=== PATIENT | female | born 1945 | race Caucasian/White ===

== ENCOUNTER 2017-07-26 10:28 | Outpatient (CLI) | payer MEDICARE, OTHER ==
--- NOTE | 2017-07-26 13:57 | ULT ---
RIGHT UPPER QUADRANT ULTRASOUND: 07/26/2017 HISTORY: Elevated liver function tests. COMPARISON: None. TECHNIQUE: Multiplanar whitfield-scale sonographic imaging of the right upper quadrant obtained. FINDINGS: The imaged pancreas is grossly unremarkable. Portions of the pancreas are obscured by bowel gas. No focal liver lesion or intrahepatic biliary dilatation is seen. The gallbladder is surgically abse nt. The common bile duct measures 6 mm, within normal limits. The purchasing expeditor reports a negative Mu rphy sign. The right kidney measures 9.3 cm in craniocaudal dimension and demonstrates no stone, hydronephrosis, or mass. IMPRESSION: Status post cholecystectomy. No biliary dilatation seen. POS: [facility]
== END 2017-07-26 10:29 | disposition home or self-care (01) ==
LOC: ULT 10:28
PROVIDERS: ATTEND Family Medicine
DX: R79.89 Other specified abnormal findings of blood chemistry (principal); Z90.49 Acquired absence of other specified parts of digestive tract
CPT/HCPCS: 76705

== ENCOUNTER 2017-08-04 12:10 | Outpatient (CLI) | payer MEDICARE | END 2017-08-04 12:11 | disposition home or self-care (01) | LOC: BICMAMMO 12:10 | PROVIDERS: ATTEND Family Medicine | DX: Z12.31 Encounter for screening mammogram for malignant neoplasm of breast (principal) | CPT/HCPCS: 77063; 77067 ==

== ENCOUNTER 2017-09-20 08:48 | Outpatient (CLI) | payer MEDICARE, OTHER ==
--- NOTE | 2017-09-20 11:20 | RAD ---
BARIUM SWALLOW ESOPHAGRAM: HISTORY: Esophageal reflux. Dysphagia. Previous gastroesophageal hernia repair. COMPARISON: None. FINDINGS: The initial oil extractor radiograph demonstrates atherosclerosis of the aorta. Normal cardiac silhouette. Pulmonary vessels and hilum are normal. Costophrenic angles are clear. No consolidation or masses. No pneumothorax or osseous abnormalities. Bilateral nipple shadows are noted. The cervical and thoracic esophagus have an overall normal course and caliber. No mucosal abnormalit y. No delay in passage of contrast. No reflux during intermittent fluoroscopy. The patient was administered a standard 13 mm barium tablet which passed without difficulty. Postprocedure upright and supine abdomen radiographs demonstrate a nonspecific bowel gas pattern. IMPRESSION: No evidence of reflux during intermittent fluoroscopy. No evidence of significant stenosis. POS: [facility]
== END 2017-09-20 08:49 | disposition home or self-care (01) ==
LOC: RAD 08:48
PROVIDERS: ATTEND Internal Medicine Gastroenterology
DX: K21.9 Gastro-esophageal reflux disease without esophagitis (principal); R13.10 Dysphagia, unspecified; Z98.890 Other specified postprocedural states
CPT/HCPCS: 74220

== ENCOUNTER 2017-09-27 12:21 | Emergency (ER) | payer MEDICARE ==
[~2017-09-27 12:21] MED LIST: ISOVUE-370 76%-LOCM 1 ML ONE
[2017-09-27 12:57] LABS: #Basophils 0.1 thou/uL (0.0-0.2); #Eosinphils 0.3 thou/uL (0.0-0.7); #Lymphocytes 1.7 thou/uL (1.20-3.40); #Monocytes 0.4 thou/uL (0.11-0.59); #Neutrophils 3.7 thou/uL (1.40-6.50); %Basophils 1.1 % (0.0-1.0); %Eosinophils 4.7 % (0.0-10.0); %Monocytes 6.4 % (0.0-10.0); %Neutrophils 59.7 % (42.0-75.0); Hemoglobin 13.9 g/dL (12.0-16.0); Mean Corpuscular HGB CONC 33.9 g/dL (32.0-36.0); Mean Corpuscular Hemoglobin 33.2 pg (27.0-31.0); Mean Corpuscular Volume 97.8 fl (81.0-99.0); Mean Platelet Volume 6.9 fL (7.4-10.4); Platelet Count 291 thou/uL (130-400); RBC Distribution Width 12.1 % (11.5-14.5); White Blood Cell (WBC) Count 6.1 thou/uL (4.8-10.8)
[2017-09-27 13:20] LABS: ALT (SGPT) 16 U/L (8-55); AST (SGOT) 23 U/L (5-34); Albumin 4.2 g/dL (3.4-4.8); Alkaline Phosphatase 59 U/L (40-150); Anion Gap 9 mmol/L (10-20); BUN (Urea Nitrogen) 12 mg/dL (9.8-20.1); Bilirubin, Total 0.6 mg/dL (0.2-1.2); Calc. Creatinine Clearance 0 mL/min (70-130); Calcium 9.4 mg/dL (7.8-10.44); Carbon Dioxide 28 mmol/L (23-31); Chloride 108 mmol/L (98-107); Estimated GFR-MDRD 56; Globulin 3.9 g/dL (2.4-3.5); Glucose 92 mg/dL (83-110); Lipase 30 U/L (8-78); Potassium 3.7 mmol/L (3.5-5.1); Protein, Total 8.1 g/dL (6.0-8.3); Sodium 141 mmol/L (136-145)
[2017-09-27 15:19] LABS: Bilirubin Negative (Negative); Blood, Urine Negative (Negative); Clarity CLEAR (Clear); Glucose, Urine (Dipstick) Negative (Negative); Leukocyte Negative (Negative); Nitrite Negative (Negative); Protein, Urine (Dipstick) Negative (Neg-Trace); Specific Gravity, Urine 1.018 (1.002-1.036); Urobilinogen 0.2 mg/dL (0.2-1.0); pH, Urine 7.5 (5.0-9.0)
--- NOTE | 2017-09-27 16:20 | CT ---
ABDOMEN CT WITH CONTRAST PELVIC CT WITH CONTRAST: HISTORY: Abdominal pain. Diarrhea x 8 days. COMPARISON: None. TECHNIQUE: Abdomen and pelvic CT are performed with IV contrast. Enteric contrast was not administered. Hung l reformatted images are submitted for interpretation. FINDINGS: ABDOMEN CT: Ground-glass opacity of the lung bases may represent edema superimposed upon chronic change. Heart s ize is within normal limits. No significant pericardial fluid. Small hiatal hernia is present. The descending thoracic aorta and abdominal aorta have an overall normal caliber. NO periaortic fat str anding. Gallbladder is surgically absent. Portal vein is patent. Liver, spleen, pancreas, and adrenal glands are unremarkable. Symmetric enhancement of the kidneys. Bilaterally, no obstructive uropathy. No gastrohepatic, retrocrural, or periportal lymphadenopathy. No mesenteric mass, lymphadenopathy, free air, or free fluid. Limited evaluation of the alimentary canal due to the lack of oral contrast. Gastric mucosa, duodenu m, and multiple normal-caliber small bowel loops are noted. Ileocecal junction is normal. Normal-ca liber appendix. There is mucosal thickening involving the cecum, ascending colon, proximal to mid tr ansverse colon, descending colon, sigmoid colon. Given the diffuse segment of mucosal thickening, an infectious or inflammatory process is favored, rather than ischemic. Small posterior left diaphragm atic hernias containing fat are noted. PELVIC CT: Uterus is surgically absent. No pelvic mass, lymphadenopathy, free air, or free fluid. No lytic or blastic lesions in the osseous structures. IMPRESSION: 1. Extensive colonic mucosal thickening, favoring an infectious or inflammatory process. 2. Normal-caliber appendix. POS: [facility]
== END 2017-09-27 15:40 | disposition home or self-care (01) ==
LOC: ERS 12:21
DX: K52.9 Noninfective gastroenteritis and colitis, unspecified (principal); I10 Essential (primary) hypertension; E03.9 Hypothyroidism, unspecified; E78.2 Mixed hyperlipidemia; M85.80 Other specified disorders of bone density and structure, unspecified site; Z87.891 Personal history of nicotine dependence; Z79.51 Long term (current) use of inhaled steroids; Z79.899 Other long term (current) drug therapy
CPT/HCPCS: 36415; 74177; 80053; 81003; 82274; 83630; 83690; 83880; 85025; 87045; 87046; 87081; 87086; 87324; 87449; 87899; 96360; 96361

== ENCOUNTER 2017-11-08 12:40 | Outpatient (CLI) | payer MEDICARE, OTHER | END 2017-11-08 12:41 | disposition home or self-care (01) | LOC: BICRAD 12:40 | PROVIDERS: ATTEND Family Medicine | DX: R05 Cough (principal) | CPT/HCPCS: 71046 ==

== ENCOUNTER 2018-12-13 15:00 | Outpatient (CLI) | payer MEDICARE ==
--- NOTE | 2018-12-13 15:46 | MMO ---
Bilateral MAMMO Bilat Screen [facility]. CLINICAL HISTORY: Patient is 73 years old and is seen for screening. The patient has no family history of breast cancer. The patient has no personal history of cancer. VIEWS: The views performed were: bilateral craniocaudal with tomosynthesis and bilateral mediolateral oblique with tomosynthesis. FILMS COMPARED: The present examination has been compared to prior imaging studies performed at [facility] on 08/04/2017, and at [facility] on 05/26/2011 and 03/27/2014. MAMMOGRAM FINDINGS: There are scattered fibroglandular densities. There are no suspicious masses, calcifications or areas of architectural distortion. There are benign appearing calcifications in the right breast. There are no suspicious masses, suspicious calcifications, or new areas of architectural distortion. IMPRESSION: THERE IS NO MAMMOGRAPHIC EVIDENCE OF MALIGNANCY. A ROUTINE FOLLOW-UP MAMMOGRAM IN 1 YEAR IS RECOMMENDED. THE RESULTS OF THIS EXAM WERE SENT TO THE PATIENT. ACR BI-RADS Category 2 - Benign finding MAMMOGRAPHY NOTE: 1. A negative mammogram report should not delay a biopsy if a dominant of clinically suspicious mass is present. 2. Approximately 10% to 15% of breast cancers are not detected by mammography. 3. Adenosis and dense breasts may obscure an underlying neoplasm. Reported by: RAFAEL WHARTON MD Electonically Signed: [id number]
--- NOTE | 2018-12-13 16:23 | BD ---
DEXA BONE DENSITOMETRY: (Dual energy X-ray Absorptiometry) DATE: 12/13/18 HISTORY: 73-year-old white female for follow-up of age-related, postmenopausal osteoporosis screening examinat ion. Height: 62 inches. Weight: 140 lb. Age of menopause: 54 years COMPARISON: Most recent previous: 09/17/2011 Baseline: 02/27/2008. FINDINGS: The bone mineral density (BMD) is given in grams per square centimeter (g/cm2): LUMBAR SPINE: BMD(g/cm2) T-score Z-score L1: 0.791 -1.8 0.3 L2: 0.883 -1.3 1.0 L3: 0.987 -0.9 1.6 L4: 0.986 -0.7 1.8 Total: 0.913 -1.2 1.1 Change in BMD compared to most recent previous DEXA: -2.5% Change in BMD compared to baseline DEXA: -1.4% HIP: Femoral neck: 0.607 -2.2 -0.2 Total: 0.783 -1.3 0.4] Change in BMD compared to most recent previous DEXA: +4.4% Change in BMD compared to baseline DEXA: +4.3% FRAX WHO Fracture Risk Assessment Tool: 10 Year Fracture Risk * Major osteoporotic fracture: 21% Hip fracture: 5.1% Reported Risk Factors: [place](), Neck BMD=0.607, BMI=25.6, and previous fracture. * Fracture probability is calculated for an untreated patient. Fracture probability may be lower if the patient has received treatment. IMPRESSION: 1) The mean bone mineral density of the lumbar spine is osteopenic. Fracture risk is increased. 2) The bone mineral density of the femoral neck is osteopenic. Fracture risk is increased. JN Rodney POS: [facility]
== END 2018-12-13 15:01 | disposition home or self-care (01) ==
LOC: BICMAMMO 15:00
PROVIDERS: ATTEND Family Medicine
DX: Z12.31 Encounter for screening mammogram for malignant neoplasm of breast (principal); M81.0 Age-related osteoporosis without current pathological fracture; M85.89 Other specified disorders of bone density and structure, multiple sites
CPT/HCPCS: 77063; 77067; 77080

== ENCOUNTER 2020-01-31 14:40 | Outpatient (CLI) | payer MEDICARE, OTHER ==
--- NOTE | 2020-01-31 15:11 | RAD ---
XR Chest Pa Lat STANDARD History: Cough Comparison: Radiograph 2018 Findings: Lungs are clear. No pneumothorax or effusion. Cardiac silhouette and mediastinal contours a re within normal limits. No acute osseous abnormality. Impression: No acute intrathoracic abnormality.
--- NOTE | 2020-01-31 16:59 | MMO ---
Bilateral MAMMO Bilat Screen [facility]. CLINICAL HISTORY: Patient is 74 years old and is seen for screening. The patient has no family history of breast cancer. The patient has no personal history of cancer. VIEWS: The views performed were: bilateral craniocaudal with tomosynthesis and bilateral mediolateral oblique with tomosynthesis. FILMS COMPARED: The present examination has been compared to prior imaging studies performed at [facility] on 08/04/2017 and 12/13/2018, and at [facility] on 05/26/2011 and 03/27/2014. This study has been interpreted with the assistance of computer-aided detection. MAMMOGRAM FINDINGS: There are scattered fibroglandular densities. There are no suspicious masses, suspicious calcifications, or new areas of architectural distortion. IMPRESSION: THERE IS NO MAMMOGRAPHIC EVIDENCE OF MALIGNANCY. A ROUTINE FOLLOW-UP MAMMOGRAM IN 1 YEAR IS RECOMMENDED. THE RESULTS OF THIS EXAM WERE SENT TO THE PATIENT. ACR BI-RADS Category 1 - Negative MAMMOGRAPHY NOTE: 1. A negative mammogram report should not delay a biopsy if a dominant of clinically suspicious mass is present. 2. Approximately 10% to 15% of breast cancers are not detected by mammography. 3. Adenosis and dense breasts may obscure an underlying neoplasm. Reported by: RIN ONEILL MD Electonically Signed: [id number]
== END 2020-01-31 14:41 | disposition home or self-care (01) ==
LOC: BICMAMMO 14:40
PROVIDERS: ATTEND Family Medicine
DX: Z12.31 Encounter for screening mammogram for malignant neoplasm of breast (principal); R05 Cough
CPT/HCPCS: 71046; 77063; 77067

== ENCOUNTER 2020-09-02 10:29 | Outpatient (CLI) | payer MEDICARE, OTHER | END 2020-09-02 10:30 | disposition home or self-care (01) | LOC: BICMRI 10:29 | PROVIDERS: ATTEND Family Medicine | DX: M79.605 Pain in left leg (principal); M48.061 Spinal stenosis, lumbar region without neurogenic claudication; M51.36 Other intervertebral disc degeneration, lumbar region; M47.816 Spondylosis without myelopathy or radiculopathy, lumbar region | CPT/HCPCS: 72148 ==

== ENCOUNTER 2021-02-03 08:32 | Outpatient (CLI) | payer MEDICARE, OTHER | END 2021-02-03 08:33 | disposition home or self-care (01) | LOC: BICULT 08:32 | PROVIDERS: ATTEND Family Medicine | DX: Z12.31 Encounter for screening mammogram for malignant neoplasm of breast (principal); Z13.6 Encounter for screening for cardiovascular disorders; M81.0 Age-related osteoporosis without current pathological fracture; M85.852 Other specified disorders of bone density and structure, left thigh; I71.4 Abdominal aortic aneurysm, without rupture | CPT/HCPCS: 76775; 77063; 77067; 77080 ==

== ENCOUNTER 2021-03-17 14:45 | Outpatient (CLI) | payer MEDICARE | END 2021-03-17 14:46 | disposition home or self-care (01) | LOC: BICULT 14:45 | PROVIDERS: ATTEND Family Medicine | DX: I10 Essential (primary) hypertension (principal) | CPT/HCPCS: 76770; 93975 ==

== ENCOUNTER 2021-08-21 09:44 | Outpatient (CLI) | payer MEDICARE ==
[2021-08-21 10:36] LABS: Hemoglobin 13.2 g/dL (12.0-15.5); Mean Corpuscular HGB CONC 34.9 g/dL (32.0-36.0); Mean Corpuscular Hemoglobin 31.4 pg (27.0-33.0); Mean Corpuscular Volume 89.8 fl (81.6-98.3); Mean Platelet Volume 8.8 fl (7.4-10.4); Platelet Count 348 10x3/uL (150-450); RBC Distribution Width 12.9 % (11.5-14.5); Red Blood Cell (RBC) Count 4.21 10x6/uL (3.90-5.03); White Blood Cell (WBC) Count 4.7 10x3/uL (3.5-10.5)
[2021-08-21 10:48] LABS: PTT 25.4 sec (22.0-33.0); Prothrombin Time 10.4 sec (9.5-12.1)
[2021-08-21 10:50] LABS: Anion Gap 14 mmol/L (10-20); BUN (Urea Nitrogen) 15 mg/dL (9.8-20.1); Calc. Creatinine Clearance 0 mL/min (70-130); Calcium 9.8 mg/dL (7.8-10.44); Carbon Dioxide 30 mmol/L (23-31); Chloride 96 mmol/L (98-107); Glucose 102 mg/dL (83-110); Sodium 137 mmol/L (136-145)
[2021-08-21 20:48] LABS: SARS-CoV-2 PCR by NAA Not Detected (NotDetected)
== END 2021-08-21 09:45 | disposition home or self-care (01) ==
LOC: LABBT 09:44
PROVIDERS: ATTEND Surgery
DX: Z01.818 Encounter for other preprocedural examination (principal); M51.16 Intervertebral disc disorders with radiculopathy, lumbar region; M48.062 Spinal stenosis, lumbar region with neurogenic claudication; Z20.822 Contact with and (suspected) exposure to COVID-19
CPT/HCPCS: 80048; 85027; 85610; 85730; 93005; U0003; U0005; 93010

== ENCOUNTER 2021-08-26 08:17 | Observation (INO) | payer MEDICARE ==
[2021-08-26] MEDS ORDERED: Thrombin 5000 UNITS/5 ML VIAL ONE (10:03)
[2021-08-26] MEDS ORDERED: ceFAZolin (BATCH) 2 GM/100 ML BAG ONE (10:16)
[2021-08-26] MEDS ORDERED: Acetaminophen 325 MG TAB PO PRN (10:30)
[2021-08-26] MEDS ORDERED: traMADol HCl 50 MG TAB PO PRN (10:32)
[2021-08-26] MEDS ORDERED: Ketorolac Tromethamine 30 MG/ML VIAL IVP PRN (10:32)
[2021-08-26] MEDS ORDERED: tiZANidine HCl 4 MG TAB PO PRN (10:33)
[2021-08-26] MEDS ORDERED: hydrALAZINE 20 MG/ML VIAL SLOW IVP PRN (10:35)
[2021-08-26] MEDS ORDERED: Lidocaine 1% PF 5 ML VIAL ONE (10:35)
[2021-08-26] MEDS ORDERED: Ondansetron PF 4 MG/2 ML Vial ONE (10:35)
[2021-08-26] MEDS ORDERED: PROPOFOL 200 MG/20 ML VIAL ONE (10:35)
[2021-08-26] MEDS ORDERED: PHENYLEPHRINE-NS 100 MCG/ML 10 ML SYRINGE ONE (10:35)
[2021-08-26] MEDS ORDERED: ePHEDrine 50 MG/ML VIAL ONE (10:35)
[2021-08-26] MEDS ORDERED: Rocuronium Bromide 10 MG/ML (10ML VIAL) ONE (10:35)
[2021-08-26] MEDS ORDERED: Dexamethasone 20 MG/5 ML VIAL ONE (10:35)
[2021-08-26] MEDS ORDERED: Non-Formulary Item 1 EACH (Levothyroxine Sodium [Levothyroxine] 50 MCG Capsule) PO SCH (10:45)
[2021-08-26] MEDS ORDERED: Non-Formulary Item 1 EACH (Levothyroxine Sodium [Levothyroxine] 100 MCG Capsule) PO SCH (10:45)
[2021-08-26] MEDS ORDERED: SUGAMMADEX SODIUM 200 MG/2 ML VIAL ONE (12:17)
[2021-08-26] MEDS ORDERED: Promethazine HCl 25 MG/ML VIAL IVPB PRN (12:31)
[2021-08-26] MEDS ORDERED: Ondansetron HCl/PF 4 MG/2 ML Vial IVP PRN (12:31)
[2021-08-26] MEDS ORDERED: Promethazine HCl 25 MG/ML VIAL IM PRN (12:31)
[2021-08-26] MEDS ORDERED: Fentanyl 250 MCG/5 ML VIAL ONE (13:04)
[2021-08-26] MEDS: Sodium Chloride 0.9% 1,000 ML IV SCH (14:28)
[2021-08-26] MEDS: Morphine 2 MG/ML VIAL SLOW IVP PRN ×2 (17:21→21:35)
[2021-08-26] MEDS ORDERED: Non-Formulary Item 1 EACH (Gabapentin [Neurontin] 600 MG Tablet) PO SCH (21:00)
[2021-08-26] MEDS ORDERED: GABAPENTIN 600 MG PO SCH (21:00)
[2021-08-26] MEDS ORDERED: Non-Formulary Item 1 EACH (Cholecalciferol (Vitamin D3) [Vitamin D3] 5,000 UNITS Capsule) PO SCH (21:00)
[2021-08-26] MEDS ORDERED: Amlodipine 5 MG TAB PO SCH ×2 (21:00)
[2021-08-26] MEDS ORDERED: Gabapentin 300 MG CAP PO SCH (21:00)
[2021-08-26] MEDS ORDERED: Cholecalciferol 1,000 UNITS (25 MCG) TAB PO SCH (21:00)
[2021-08-26] MEDS ORDERED: rOPINIRole HCl 1 MG TAB PO SCH ×2 (21:00)
[2021-08-27] MEDS: Sodium Chloride 0.9% 1,000 ML IV SCH (01:56)
[2021-08-27] MEDS: HYDROcodone/Acetaminophen 7.5/325 mg Tablet PO PRN ×2 (05:53→12:03)
[2021-08-27] MEDS ORDERED: Levothyroxine Sodium 100 MCG TAB PO SCH (06:00)
[2021-08-27] MEDS ORDERED: Levothyroxine Sodium 50 MCG TAB PO SCH (06:00)
[2021-08-27] MEDS ORDERED: Hydrochlorothiazide 25 MG TAB PO SCH (09:00)
[2021-08-27] MEDS ORDERED: CITALOPRAM 10 MG TAB PO SCH (09:00)
[2021-08-27] MEDS ORDERED: Citalopram 10 MG TAB PO SCH (09:00)
[2021-08-27] MEDS ORDERED: BIOTIN 10000 MCG PO SCH (09:00)
[2021-08-27] MEDS ORDERED: Calcium Carbonate 600 MG TAB PO SCH (09:00)
[2021-08-27 09:54] VITALS: BP 112/71; TEMP 98.5
[2021-08-28] MEDS ORDERED: Levothyroxine Sodium 50 MCG TAB PO SCH ×2 (06:00)
== END 2021-08-27 12:10 | disposition home or self-care (01) ==
LOC: SDC 08:17 → MSONC 10:35
PROVIDERS: ADMIT Surgery; ATTEND Surgery
PROC: 0SB20ZZ Excision of Lumbar Vertebral Disc, Open Approach (ICD-10-PCS; principal; 2021-08-26)
PROC: 01NB0ZZ Release Lumbar Nerve, Open Approach (ICD-10-PCS; 2021-08-26)
PROC: 0SB40ZZ Excision of Lumbosacral Disc, Open Approach (ICD-10-PCS; 2021-08-26)
PROC: 01NA0ZZ Release Lumbosacral Plexus, Open Approach (ICD-10-PCS; 2021-08-26)
DX: M48.061 Spinal stenosis, lumbar region without neurogenic claudication (principal); M51.16 Intervertebral disc disorders with radiculopathy, lumbar region; I10 Essential (primary) hypertension; E03.9 Hypothyroidism, unspecified; E78.5 Hyperlipidemia, unspecified; G25.81 Restless legs syndrome; Z87.891 Personal history of nicotine dependence; Z79.890 Hormone replacement therapy; Z79.899 Other long term (current) drug therapy; Z88.2 Allergy status to sulfonamides; Z88.5 Allergy status to narcotic agent; Z88.8 Allergy status to other drugs, medicaments and biological substances
CPT/HCPCS: 63047; 63048 ×2; 76000; 96374; 96376; G0378 ×2; J2270; J0690; J1100; J2405; J2704; J3010; J3370; J3490; J7050

== ENCOUNTER 2022-02-04 12:19 | Outpatient (CLI) | payer MEDICARE | END 2022-02-04 12:20 | disposition home or self-care (01) | LOC: TBSIIMAG 12:19 | PROVIDERS: ATTEND Nurse Practitioner Family | DX: M47.26 Other spondylosis with radiculopathy, lumbar region (principal); M48.061 Spinal stenosis, lumbar region without neurogenic claudication; Z98.890 Other specified postprocedural states | CPT/HCPCS: 72148 ==